=== PATIENT | female | born 1955 | race Caucasian/White ===

== ENCOUNTER 2023-07-12 11:32 | Outpatient (CLI) | payer OTHER, SELFPAY ==
[2023-07-12 19:16] LABS: Alanine Aminotransferase 32 U/L (6-35); Albumin Level 4.5 g/dL (3.5-5.1); Alkaline Phosphatase 74 U/L (38-126); Anion Gap 7 mmol/L (8-16); Aspartate Amino Transferase 43 U/L (14-36); Bilirubin,Total 0.9 mg/dL (0.2-1.3); Blood Urea Nitrogen 15 mg/dL (7-17); Calcium 9.6 mg/dL (8.4-10.2); Carbon Dioxide 29 mmol/L (22-30); Chloride 103 mmol/L (98-107); Cholesterol 259 mg/dL (0-200); Estimated Glomerular Filt Rate > 60; Glucose 97 mg/dL (65-110); HDL Direct 55 mg/dL; Potassium 4.2 mmol/L (3.4-5.0); Sodium 139 mmol/L (137-145); Triglycerides 104 mg/dL (<150)
[2023-07-12 19:28] LABS: LDL Cholesterol Direct 164 mg/dL
[2023-07-12 19:46] LABS: Thyroid Stimulating Hormone 0.399 uIU/mL (0.465-4.680)
[2023-07-12 20:25] LABS: Free T4 Free Thyroxine 1.63 ng/mL (0.78-2.19)
[2023-07-12 20:35] LABS: Hematocrit 44.1 % (37.0-47.0); Hemoglobin 14.2 g/dL (12.0-15.0); Mean Corpuscular HGB Conc 32.2 g/dl (32-36); Mean Corpuscular Volume 93.2 fl (80-100); Mean Platelet Volume 10.4 fl (7.4-10.4); Platelet Count Result 279 k/mm3 (150-375); Red Blood Count 4.73 M/mm3 (4.2-5.4); Red Cell Distribution Width 12.8 % (11.5-14.5); White Blood Count 5.3 K/mm3 (4.5-10.0)
[2023-07-14 10:01] LABS: Amphetamines NEGATIVE ng/mL (<500); Barbiturates NEGATIVE ng/mL (<300); Benzodiazepines NEGATIVE ng/mL (<100); Cocaine Metabolite NEGATIVE ng/mL (<150); Marijuana Metabolite NEGATIVE ng/mL (<20); Methadone Metabolite NEGATIVE ng/mL (<100); Opiates NEGATIVE ng/mL (<100); Oxidant NEGATIVE mcg/mL (<200); pH 6.9 (4.5-9.0)
[2023-07-15 14:18] LABS: Vitamin D 1,25 (OH)2 Total 36 pg/mL (18-72); Vitamin D2 1,25 (OH)2 <8 pg/mL; Vitamin D3 1,25 (OH)2 36 pg/mL
== END 2023-07-12 11:33 | disposition home or self-care (01) ==
PROVIDERS: PCP Family Medicine; Visit Provider Family Medicine
DX: E03.9 Hypothyroidism, unspecified (principal); E66.9 Obesity, unspecified; Z79.899 Other long term (current) drug therapy; Z02.83 Encounter for blood-alcohol and blood-drug test; E55.9 Vitamin D deficiency, unspecified
CPT/HCPCS: 36415; 80053; 80061; 80307; 82652; 84439; 84443; 85027

== ENCOUNTER → 2023-09-16 08:39 | Outpatient (CLI) | payer OTHER, SELFPAY ==
--- NOTE | ~2023-09-16 | US_ITS ---
Abdominal Sonogram: Real-time sonographic imaging of the abdomen was performed. Clinical History: Abdominal pain Findings: The liver appears normal with no evidence of mass lesion or bile duct dilatation. Main por shahbaz vein demonstrates normal direction of flow. The spleen is normal in size without evidence of foca l lesion. The gallbladder is well distended, and appears normal with no evidence of gallstone or wal l thickening. The common bile duct measures 3 mm. The visualized pancreas, aorta, and IVC are unrema rkable. The right kidney measures 9.8 cm in length and the left kidney measures 8.5 cm. There is no hydronephrosis or renal calculus. No hernia seen in the right lower quadrant at the area of clinical concern. Impression: Unremarkable abdominal ultrasound. Reviewed, dictated and finalized at location . RATORY DEVELOPMENT TECHNICIAN Impression: Unremarkable abdominal ultrasound.
== END ==
PROVIDERS: PCP Nurse Practitioner; Visit Provider Nurse Practitioner
DX: R10.9 Unspecified abdominal pain (principal)
CPT/HCPCS: 76700

== ENCOUNTER → 2023-12-21 10:44 | Outpatient (CLI) | payer OTHER, SELFPAY ==
--- NOTE | ~2023-12-21 | XR_ITS ---
Left Hand Technique: PA, oblique, and lateral views were obtained. Clinical History: Fracture Findings: No acute fracture or dislocation is seen. Osseous alignment is anatomic. Joint spaces are p reserved. Soft tissues are unremarkable. Impression: Unremarkable left hand. Reviewed, dictated and finalized at location M. D RETURN REPAIRER Impression: Unremarkable left hand.
== END ==
PROVIDERS: PCP Family Medicine; Visit Provider Family Medicine
DX: M79.645 Pain in left finger(s) (principal)
CPT/HCPCS: 73130

== ENCOUNTER 2024-04-18 10:31 | Outpatient (CLI) | payer OTHER, SELFPAY ==
[2024-04-18 12:58] LABS: Hematocrit 44.6 % (37.0-47.0); Hemoglobin 14.6 g/dL (12.0-15.0); Mean Corpuscular HGB Conc 32.7 g/dl (32-36); Mean Corpuscular Hemoglobin 30.3 pg (26-34); Mean Corpuscular Volume 92.5 fl (80-100); Mean Platelet Volume 10.2 fl (7.4-10.4); Platelet Count Result 306 k/mm3 (150-375); Red Blood Count 4.82 M/mm3 (4.2-5.4); Red Cell Distribution Width 12.3 % (11.5-14.5); White Blood Count 5.7 K/mm3 (4.5-10.0)
[2024-04-18 13:19] LABS: Alanine Aminotransferase 29 U/L (6-35); Albumin Level 4.7 g/dL (3.5-5.1); Alkaline Phosphatase 71 U/L (38-126); Anion Gap 8 mmol/L (4-12); Aspartate Amino Transferase 56 U/L (14-36); Bilirubin,Total 0.9 mg/dL (0.2-1.3); Blood Urea Nitrogen 21 mg/dL (7-17); Calcium 9.6 mg/dL (8.4-10.2); Carbon Dioxide 27 mmol/L (22-30); Chloride 106 mmol/L (98-107); Cholesterol 158 mg/dL (0-200); Estimated Glomerular Filt Rate > 60; Glucose 91 mg/dL (65-110); HDL Direct 60 mg/dL; Potassium 4.3 mmol/L (3.4-5.0); Sodium 141 mmol/L (137-145); Triglycerides 74 mg/dL (<150)
[2024-04-18 13:37] LABS: LDL Cholesterol Direct 83 mg/dL
[2024-04-18 13:45] LABS: Thyroid Stimulating Hormone 0.105 uIU/mL (0.465-4.680)
[2024-04-18 14:09] LABS: Free T4 Free Thyroxine 2.17 ng/mL (0.78-2.19)
[2024-04-22 15:02] LABS: Vitamin D 1,25 (OH)2 Total 49 pg/mL (18-72); Vitamin D2 1,25 (OH)2 <8 pg/mL; Vitamin D3 1,25 (OH)2 49 pg/mL
== END 2024-04-18 10:32 | disposition home or self-care (01) ==
LOC: ANHGOSHLAB 10:33
PROVIDERS: PCP Family Medicine; Visit Provider Family Medicine
DX: E03.9 Hypothyroidism, unspecified (principal); E55.9 Vitamin D deficiency, unspecified; E66.9 Obesity, unspecified; Z79.899 Other long term (current) drug therapy
CPT/HCPCS: 36415; 80053; 80061; 82652; 84439; 84443; 85027

== ENCOUNTER 2024-11-15 11:38 | Outpatient (CLI) | payer OTHER, SELFPAY ==
--- NOTE | ~2024-11-15 | XR_ITS ---
EXAMINATION: XR chest 2V 11/15/2024 11:53 INDICATION: Cough PROCEDURE: 2 view chest COMPARISON: No prior studies for comparison. FINDINGS: The lungs are clear. The cardiomediastinal silhouette is within normal limits. There are no pleural effusions. There is no pneumothorax suspected. There are bilateral breast implants. IMPRESSION: 1: NO ACUTE CARDIOPULMONARY DISEASE. Reviewed, dictated and finalized at location A. INERY WORKER
== END 2024-11-15 11:39 | disposition home or self-care (01) ==
LOC: GOSHIMG 11:39
PROVIDERS: PCP Nurse Practitioner; Visit Provider Nurse Practitioner
DX: R05.9 Cough, unspecified (principal)
CPT/HCPCS: 71046

== ENCOUNTER 2025-01-05 09:59 | Outpatient (CLI) | payer OTHER, SELFPAY ==
--- NOTE | ~2025-01-05 | CT_ITS ---
EXAMINATION:CT chest high resolution wo or DATE: 01/05/2025 10:40 INDICATION: Wheezing. TECHNIQUE: Computed tomography (CT) of the chest was performed without intravenous contrast. Automate d exposure control and iterative reconstruction technique were employed. The dose-length product (DLP ) was 265.48 mGy-cm. COMPARISON: Chest 2 views 11/15/2024 FINDINGS: There is mild atelectasis bilaterally. There are mild groundglass opacities in the upper lo bes. No bronchiectasis or honeycombing. No pleural effusion. The heart size is normal. No pericardial effusion. There are bilateral breast implants. There is mild thoracic spondylosis. IMPRESSION: 1. Mild groundglass opacities in the upper lobes, likely inflammation or infection. Reviewed, dictated and finalized at location A. PHONE SOLICITOR IMPRESSION: 1. Mild groundglass opacities in the upper lobes, likely inflammation or infect ion.
== END 2025-01-05 10:00 | disposition home or self-care (01) ==
LOC: GOSHIMG 10:00
PROVIDERS: PCP Nurse Practitioner; Visit Provider Family Medicine
DX: R06.2 Wheezing (principal); R05.9 Cough, unspecified; R91.8 Other nonspecific abnormal finding of lung field
CPT/HCPCS: 71250

== ENCOUNTER 2025-09-24 08:45 | Outpatient (CLI) | payer OTHER, SELFPAY ==
--- OUTSIDE RECORDS SUMMARY | 2025-09-24 09:18 | XMS_ITS | Clinical Summary ---
Author Organization [facility] Address [address] [place] [address] Care Team Providers Care Photolettering Machine Operator Name Role Phone Herrera Martinez MD Primary Care Provider [phone] Source Comments [facility],non-owned Affiliates and Associated Physician Practices is amultiple site organization consisting of ambulatory clinics and hospital sitesin [place] and [place]. This disclosure is being madepursuant to the Care Everywhere program and may not contain all information available regarding this patient. Last updated 18.[facility] Allergies Active Allergy Reactions Criticality Noted Date Comments Penicillins 07/08/2017 Medications * Be aware that medications may not be up to date on this document. Alwaysverify current medications with the patient. azelastine (ASTELIN) 0.1 % nasal spray [place] 1 [place] into each nostril 2 times daily 3 Inhaler 3 7 Active ketoconazole (Nizoral) 2 % shampoo as needed 2 Active fluocinonide (Lidex) 0.05 % solution as needed 2 Active cetirizine (ZyrTEC) 10 MG tablet Take 1 (one) tablet by mouth once daily 90 tablet 3 2 Active azithromycin (Zithromax) 250 MG tablet Take 2 tablets now, then 1 tablet daily for 4 days. 6 tablet 3 Active atorvastatin (Lipitor) 10 MG tablet TAKE 1 TABLET BY MOUTH EVERY DAY 90 tablet 1 3 Active levothyroxine (Synthroid) 100 MCG tablet TAKE 1 TABLET BY MOUTH EVERY DAY BEFORE BREAKFAST 90 tablet 1 3 Active Active Problems Problem Noted Date Diagnosed Date Seborrheic dermatitis 07/13/2022 Pure hypercholesterolemia 07/13/2022 Psoriasis 06/04/2020 Acne vulgaris 06/04/2020 Seasonal allergic rhinitis due to pollen 018 Acquired hypothyroidism 02/17/2018 Immunizations Immunization Administration Dates Next Due COVESME CHANDRA PRIMARY 18+YR 01/07/2021 Covid Pfizer primary monoval ent 12+ yr 0.3mL Purple cap 03/27/2023,07/25/2022 INFLUENZA VACCINE 07/25/2022 INFLUENZA VACCINE, HIGH-DOSE , QUADR. (FLUZONE HIGH-DOSE QUADRIVALENT; 65Y+), 0.7 ML (HD-IIV4) 07/16/2020 RSV AREXVY 60YR+ 0.5ML 08/23/2023 Zoster Hzv Vacc Recombinant Inj Im 03/30/2023 Family History Medical History Relation Name Comments CAD (Coronary Artery Disease) Father Thyroid Disease Mother Relation Name Status Comments Father Mother Social History Tobacco Use Types Packs/Day Years Used Date Smoking Tobacco: Never Smokeless Tobacco: Never Alcohol Use Standard Drinks/Week Comments No 0 (1 standard drink = 0.6 oz pur e alcohol) PHQ-2 Answer Date Recorded PHQ2 TOTAL SCORE 0 07/13/2022 Comments Unknown Sex and Gender Information Value Date Recorded Sex Assigned at Not on file 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 Gender Identity Not on file Sexual Orientation Not on file Last Filed Vital Signs Vital Sign Reading Time Taken Comments Blood Pressure 116/78 06/25/2023 10:12 AM CDT Pulse 86 07/13/2022 11:10 AM CDT Temperature 36.7 C (98 F) 07/13/2022 11:10 AM CDT Respiratory Rate 14 07/13/2022 11:10 AM CDT Oxygen Saturation 98% 07/13/2022 11:10 AM CDT Inhaled Oxygen Concentration - - Weight 77.1 kg (170 lb) 06/25/2023 10:12 AM CDT Height 160 cm (5' 3) 06/25/2023 10:12 AM CDT Body Mass Index 30.11 06/25/2023 10:12 AM CDT Plan of Treatment Health Maintenance Due Date Last Done Comments BONE DENSITY TESTING 1955 COLOGJOSE (AGES 45-75) - COLON CA SCREENING 1955 CT COLONOGRAPHY - COLON CA SCREENING 1955 FIT - COLON CA SCREENING 1955 FLEX SIG - COLON CA SCREENING 1955 MEDICARE AWV 12 MONTHS 1955 HEPATITIS C SCREENING 05/28/1973 DTAP/TDAP/TD VACCINES (1 - Tdap) 1974 PNEUMOCOCCAL VACCINE 50+ (1 of 1 - PCV) 2005 ZOSTER VACCINE (2 of 2) 05/25/2023 03/30/2023 MAMMOGRAM 10/08/2024 10/08/2022 DEPRESSION SCREENING 11/01/2024 07/13/2022 SCREENING FOR DIABETES 06/22/2025 , 06/16/2021, 06/07/2020, Additional history exists COVID-19 VACCINE ( season) 2025 03/27/2023, 07/25/2022, 01/07/2021 INFLUENZA VACCINE (#1) 2025 07/25/2022, 2019 COLON MONITORING 07/09/2030 07/09/2020 COLONOSCOPY - COLON CA SCREENING 07/09/2030 07/09/2020 Colorectal Cancer Screening 07/09/2030 Respiratory Syncytial Virus (RSV) Vaccine Pt: or over 60 yrs Completed 08/23/2023 HEPATITIS B VACCINE Aged Out No longe r eligible based on patient's age to complete this topic HIB VACCINE Aged Out No longer eligi ble based on patient's age to complete this topic HPV VACCINE Aged Out No longer eligi ble based on patient's age to complete this topic MENINGOCOCCAL (Group B) VACCINE SHARED DECISION-MAKING Aged Out No longer eligible based on patient's age to complete this topic MENINGOCOCCAL GROUPS A/C/Y/W VACCINE Aged Out No longer eligible based on patient's age to complete this topic Procedures Procedure Name Priority Date/Time Associated Diagnosis Comments MAMMO BILAT SCREENING Routine 10/08/2022 Breast cancer screening by mammogram BASIC METABOLIC PANEL (CALCIUM TOTAL) Routine 06/22/2022 9:01 AM CDT Seasonal allergic rhinitis due to pollen from Last 3 Months or Most Recently Relevant to Health Maintenance Results * MAMMO BILAT SCREENING (10/08/2022) Anatomical Region Laterality Modality Breast Bilateral Mammography Herrera Martinez MD MAMMO ORDERABLES Final Resu lt * (ABNORMAL) BASIC METABOLIC PANEL (CALCIUM TOTAL) (06/22/2022 9:01 AM CDT) Glucose 93 65 - 99 mg/dL [facility] INSURANCE BILL BUN 15 8 - 27 mg/dL [facility] INSURANCE BILL Creatinine 0.77 0.57 - 1.00 mg/dL [facility] INSURANCE BILL eGFR by CKD-EPI 84 >59 mL/min/1.7 3 [facility] INSURANCE BILL BUN/Creatinine Ratio 19 12 - 28 [facility] INSURANCE BILL Sodium 143 134 - 144 mmol/L [facility] INSURANCE BILL Potassium 4.6 3.5 - 5.2 mmol/L [facility] INSURANCE BILL Chloride 107(H) 96 - 106 mmol/L [facility] INSURANCE BILL CO2 24 20 - 29 mmol/L [facility] INSURANCE BILL Calcium 9.8 8.7 - 10.3 mg/dL [facility] INSURANCE BILL Comment:FASTING Blood BLOOD SPECIMEN / Unknown 06/22/2022 9:01 AM CDT 06/22/2022 Narrative Resulting Agency Comment Lab Testing performed at: [place] [id number] [facility] [id number] Herrera Martinez MD LAB - CHEMISTRY ORDERABLES Final Result [facility] INSURANCE BILL [address] [place] [address] from Last 3 Months or Most Recently Relevant to Health Maintenance Insurance [facility] MEDICARE Care Teams Photolettering Machine Operator Relationship Specialty Start Date End Date Herrera Martinez MD PCP - General Internal Medicine 07/08/17
--- OUTSIDE RECORDS SUMMARY | 2025-09-24 09:18 | XMS_ITS ---
Author Organization Unknown ENCOUNTERS Encounter Performer Location Date Diagnosis Diagnosis Status Outpatient [facility] [place] [id number] [place] [address] [id number] Outpatient [facility] [address] [place] [address] [id number] [place] Outpatient [facility] [address] [place] [address] [id number] [place] *Note: Encounters from your own facility or health system may be excluded. Allergies, Adverse Reactions, Alerts Allergen Type Severity Identification Date Penicillins drug allergy 3 [id number] Medications Name Date Quantity Days Supplied [facility] Number
--- OUTSIDE RECORDS SUMMARY | 2025-09-24 09:18 | XMS_ITS | Clinical Summary ---
Author Organization [facility] Address [address] [place] [address] Care Team Providers Care Electrical Systems Drafter Name Role Phone Unavailable Primary Care Provider Unavailabl e Encounters Date Type Department Care Team Description 08/22/2025 External Device Data [facility] ABSTRACTION Provider, Abstract 08/21/2025 External Device Data [facility] ABSTRACTION Provider, Abstract 07/24/2025 External Device Data [facility] ABSTRACTION Provider, Abstract 07/17/2025 External Device Data [facility] ABSTRACTION Provider, Abstract 07/10/2025 External Device Data [facility] ABSTRACTION Provider, Abstract from Last 3 Months Social History Tobacco Use Types Packs/Day Years Used Date Smoking Tobacco: Never Assessed Comments No Sex and Gender Information Value Date Recorded Sex Assigned at Not on file 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 Gender Identity Not on file Sexual Orientation Not on file Plan of Treatment Health Maintenance Due Date Last Done Comments DTAP/TDAP/TD VACCINES (1 - Tdap) 1974 COLORECTAL SCREENING 2000 Colorectal Cancer Screening 2000 FIT-DNA Q 3 years 2000 FIT/FOBT Q 1 year 2000 Flex Sig/CT Colonography Q 5 years 2000 PNEUMOCOCCAL VACCINE 50+ YEA RS (1 of 1 - PCV) 2005 OSTEOPOROSIS SCREENING 2020 ZOSTER VACCINE (2 of 2) 05/25/2023 03/30/2023 INFLUENZA VACCINE (#1) 2025 07/22/2023, 2019 COVID-19 Vaccine (5 - 2024-2 6 season) 2025 07/22/2023, 03/27/2023, 07/25/2022, Additional history exists BREAST CANCER SCREENING 03/22/2026 03/22/20 25, 10/13/2023, 10/08/2022, Additional history exists RSV VACCINE (60+ or ) (1 - 1-dose 75+ series) 2030 Procedures Procedure Name Priority Date/Time Associated Diagnosis Comments MAMMO 3D ED SCREEN IMPL BILAT W OR WO CAD Routine 03/22/2025 10:46 AM CDT Visit for screening mammogram from Last 3 Months or Most Recently Relevant to Health Maintenance Results * MAMMO 3D ED SCREEN IMPL BILAT W OR WO CAD (03/22/2025 10:46 AM CDT) Anatomical Region Laterality Modality Breast Bilateral Mammography 03/22/2025 10:4 7 AM CDT Impressions 03/22/2025 2:01 PM CDT IMPRESSION: BI-RADS 2, benign findings consistent with bilateral prepectoral silicone implants which are right-sided with a ruptured with contained rupture. Annual screening mammography is advised. Narrative 03/22/2025 2:01 PM CDT Bilateral screening mammogram. Comparison is made with bilateral screening mammogram from 10/13/2023 and 10/06/2022. CLINICAL HISTORY: Patient is 69-year-old female who is presenting for a screening examination, patient has bilateral silicone implants. The of the implants placement is not known however the right implant is damaged since the beginning of screening here in 2021. There is no personal or family history of breast cancer. TECHNIQUE: Bilateral CC and MLO images of the breasts were obtained with the implants in view and implants out of view/ Feroz view and evaluated with 2-D and 3-D mammogram/tomosynthesis. FINDINGS: Bilaterally, there are bilateral prepectoral silicone implants which the right-sided one is ruptured, however it is a contained rupture. It is a right-sided injury and on MLO view, the spilled implant content is seen within the distal portion of the right breast implant and on CC view, it is seen within the posterior medial and lateral view of the breasts, axial however it does not change images within the same location as this beginning of the screening at 2021. The breast parenchyma is composed of entirely fatty replaced fibroglandular tissue, category A. Bilaterally, there are no suspicious masses, microcalcifications in clusters, architectural distortions or asymmetric densities. us Aria Engel DO MAMMO ORDERABLES Final Res ult from Last 3 Months or Most Recently Relevant to Health Maintenance Insurance [id number] [facility]
--- NOTE | 2025-09-24 09:42 | ECG_ITS ---
Test Date: 2025-09-24 09:57:40 Measurements Intervals [place] Rate: 80 P: 50 NV: 148 QRS: -38 QRSD: 89 T: 17 QT: 385 QTc: 446 Interpretive Statements SINUS RHYTHM MARKED LEFT AXIS DEVIATION [QRS AXIS < -30] POSSIBLE ANTERIOR MYOCARDIAL INFARCTION [30 ms Q WAVE IN V3/V4, OR R < 0.2 mV IN V4], PROBABLY OLD ABNORMAL ECG Electronically Signed On 09-24-2025 13:53:51 NOC TECHNICIAN by Delfino Downs M.D.
[2025-09-24 10:06] LABS: Hematocrit 41.9 % (37.0-47.0); Hemoglobin 13.9 g/dL (12.0-15.0); Immature Granulocyte Percent A 0.2 % (0-0.5); Lymphocytes Absolute Auto 1.98 K/mm3 (0.9-3.2); Mean Corpuscular HGB Conc 33.2 g/dl (32-36); Mean Corpuscular Hemoglobin 29.9 pg (26-34); Mean Corpuscular Volume 90.1 fl (80-100); Nucleated Red Blood Cells Absolute Auto 0.000 K/mm3 (0.0-0.012); Nucleated Red Blood Cells Perc 0.0 % (0.0-0.2); Platelet Count Result 256 k/mm3 (150-375); Red Blood Count 4.65 M/mm3 (4.2-5.4); White Blood Count 6.5 K/mm3 (4.5-10.0)
[2025-09-24 10:16] LABS: INR 1.0; Prothrombin Time 12.8 Seconds (11.1-14.7)
[2025-09-24 10:17] LABS: Partial Thromboplastin Time 27.4 Seconds (22.3-36.8)
[2025-09-24 10:27] LABS: Alanine Aminotransferase 26 U/L (6-35); Albumin Level 4.3 g/dL (3.5-5.1); Alkaline Phosphatase 80 U/L (38-126); Anion Gap 6 mmol/L (4-12); Aspartate Amino Transferase 36 U/L (14-36); Bilirubin,Total 0.6 mg/dL (0.2-1.3); Blood Urea Nitrogen 16 mg/dL (7-17); Calcium 9.3 mg/dL (8.4-10.2); Carbon Dioxide 28 mmol/L (22-30); Chloride 104 mmol/L (98-107); Estimated Glomerular Filt Rate > 60; Glucose 86 mg/dL (65-110); Potassium 4.2 mmol/L (3.4-5.0); Sodium 138 mmol/L (137-145); Total Protein 7.3 g/dL (6.3-8.2)
== END 2025-09-24 08:46 | disposition home or self-care (01) ==
LOC: ANHSURGERY 08:47
PROVIDERS: PCP Family Medicine; Visit Provider Urology
DX: N81.4 Uterovaginal prolapse, unspecified (principal); E78.5 Hyperlipidemia, unspecified; Z01.818 Encounter for other preprocedural examination
CPT/HCPCS: 36415; 80053; 85025; 85610; 85730; 93005

== ENCOUNTER 2025-10-01 01:46 | Day surgery (SDC) | payer OTHER, SELFPAY ==
--- NOTE | 2025-09-24 08:49 | PC.NURSE ---
[facility] has started construction of its new state of the art ER which will open Spring 2026. With this, we anticipate parking may be a challenge for some our surgical patients and families. Parking spaces are limited but are available for all Surgical, obstetrics, and ER patients sharing this lot. If you arrive and find you are having a hard time finding a parking space, please note that we understand the challenges, please drive around the hospital and park near Hospital Entrance 1. When you enter this entrance, you can ask a volunteer to direct or take you back to the surgical waiting area to check in. We appreciate everyone?s understanding of these expected challenges while we build for your future. Report to the Outpatient Waiting Room, entrance under the green pavilion located off [address], at time ___10 am____ on date _10/01/25 . Planned Procedure Time: __1200 noon .? Time changes happen often and if your time is changed the preop area will call you the afternoon before. - You and your visitor will be asked to self-screen and do not enter if you have any COVID symptoms. Please call surgeon if you need to reschedule. - A mask is optional within the hospital at this time. Patients may have clear liquids (water, carbonated beverages, clear teas, apple juice) until 3 hours prior to surgery ( 9AM) with a maximum of 20 ounces. - No food from midnight until time of surgery and no smoking, or chewing tobacco (or any form of nicotine). No chewing gum, candy or mints. - Take only the following medications with a SIP of water on the morning of surgery: LEVOTHYROXINE DO NOT STOP ANY OF YOUR OTHER PRESCRIPTION MEDICATIONS PRIOR TO SURGERY EXCEPT THE FOLLOWING Hold all vitamins and supplements for 3 days per anesthesiologist.LAST DOSE 09/27/25 Medications to discontinue per physician NONE Please no make-up, nail maori, hairspray, perfume, deodorant, or body powder the day of surgery.? No jewelry (including any body piercings) or valuables the day of surgery, leave them at home.? Please take a shower or bath the night before, or the morning of, surgery with an antibacterial soap.? Wear comfortable, loose fitting clothing.? Children are encouraged to wear pajamas. - Jewelry must be removed prior to entering the operating room.? Rings and piercings that are not removed may be cut off. - The hospital will not accept responsibility for valuables.? - Please leave all valuables, including medications, at home the day of surgery. If you are going home after surgery, a licensed tow truck driver must drive you home.? - NO public transportation without another adult if you receive anesthesia. - We recommend that an adult stay with you for 24 hours following discharge. - We also recommend that you do not drive, make important decision, drink alcoholic beverages, or take any drugs that were not prescribed by your health care provider for at least 24 hours after your discharge time. For Pediatric surgeries, we recommend two adults accompany the child home. Follow any additional instructions given to you from your surgeon. VERBAL AND WRITTEN instructions given to _PATIENIT and asked if any additional questions and then verbalized understanding. Patient advised to call surgeon office or pre surgery nurse liaison [phone] if any additional questions.
[2025-09-24 08:52] VITALS: BMI 29.5
[2025-09-24 09:32] VITALS: BP 130/85; PULSE 84; RESP 18; TEMP 36.8; O2SAT 96
--- NOTE | 2025-09-28 19:29 | PM.IMHP ---
H&P: HPI History of Present Illness Date/Time: 09/28/25 19:29 Chief Complaint: Surgery Narrative: POP no aydin Review of Systems Review of Systems: All systems reviewed & are unremarkable except as noted in HPI and below PMFSH Family History Family History Mother Family history of thyroid disease Family history of osteoporosis Hypertension COPD (chronic obstructive pulmonary disease) Father Family history of Parkinson's disease Family history of heart disease in male family member before age 55 Social History Social History Social History: caffeine use- 1 cup of coffee per day Smoking status: Never smoker Second hand tobacco smoke exposure: No Alcohol intake: current Drinks per week: 1 Alcohol use details: maybe 1 a month Substance use: never Substance use type: does not use Lack of Transportation: No Lack of Food: Never True Current Housing: I Have Housing Concerned About Future Housing: No Difficulty Paying Gas/Electric Bills: No Difficulty Paying for Meds: No Currently Unemployed: No Education: High School Diploma/GED Difficulty w/ Childcare or Family Care: No Living arrangements: with family Spiritual care concerns: No Meds Home Medications and Allergies Home Medications ?Medication ?Instructions ?Recorded ?Confirmed ?Type cholecalciferol (vitamin D3) 25 25 mcg PO DAILY 10/19/24 09/24/25 History mcg (1,000 unit) tablet azelastine 137 mcg (0.1 %) nasal 1 spray intranasal Q12H #30 mL 02/22/25 09/24/25 Rx spray levothyroxine 100 mcg tablet 100 mcg PO DAILY #60 tabs 02/22/25 09/24/25 Rx (Levoxyl) fluticasone propionate 50 1 spray intranasal BID #48 grams 07/31/25 09/24/25 Rx mcg/actuation nasal spray,suspension (Flonase Allergy Relief) simvastatin 10 mg tablet 10 mg PO DAILY #90 tabs 07/31/25 09/24/25 Rx cetirizine 5 mg-pseudoephedrine ER See Rx Instructions .Route 09/04/25 09/24/25 Rx 120 mg tablet,extended release,12hr .COMPLEX #180 tabs levothyroxine 112 mcg tablet 112 mcg PO DAILY 09/24/25 09/24/25 History multivit with minerals-iron 18 1 tablet PO DAILY 09/24/25 09/24/25 History mg-folic ac 400 mcg-vit K 25 mcg tablet (Adults Multivitamin) Allergies Allergy/AdvReac Type Severity Reaction Status Date / Time Penicillins Allergy Unknown Swelling Verified 09/24/25 08:53 Exam Narrative: anterior +3 apex 0 Assessment and Plan Assessment and plan (1) Uterine prolapse: Code(s): N81.4 - Uterovaginal prolapse, unspecified Status: Acute Assessment and Plan: Robotic Sacral Colpopexy
[2025-10-01] VITALS (9 sets, daily range): BP systolic 97–139; BP diastolic 52–83; PULSE 63–81; RESP 12–16; TEMP 36.2–36.9; O2SAT 93–99
--- OUTSIDE RECORDS SUMMARY | 2025-10-01 01:50 | XMS_ITS | Clinical Summary ---
Author Organization [facility] Address [address] [place] [address] Care Team Providers Care Aeronautical Research Engineer Name Role Phone Herrera Martinez MD Primary Care Provider [phone] [phone] Source Comments [facility],non-owned Affiliates and Associated Physician Practices is amultiple site organization consisting of ambulatory clinics and hospital sitesin [place], [place], [place] and [place]. This disclosure is being madepursuant to the Care Everywhere program and may not contain all information available regarding this patient. Last updated 18.[facility] Allergies Active Allergy Reactions Criticality Noted Date Comments Penicillins 07/08/2017 Medications * Be aware that medications may not be up to date on this document. Alwaysverify current medications with the patient. 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
--- OUTSIDE RECORDS SUMMARY | 2025-10-01 01:50 | XMS_ITS | Clinical Summary ---
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
--- OUTSIDE RECORDS SUMMARY | 2025-10-01 01:50 | XMS_ITS ---
Author Organization Unknown ENCOUNTERS Encounter Performer Location Date Diagnosis Diagnosis Status Outpatient [facility] [address] [place] [address] [id number] Outpatient [facility] [address] [place] [address] [id number] [place] Outpatient [facility] [address] [place] [address] [id number] [place] Outpatient [facility] [address] [place] [address] [id number] [place] *Note: Encounters from your own facility or health system may be excluded. Allergies, Adverse Reactions, Alerts Allergen Type Severity Identification Date Penicillins drug allergy 3 [id number] Medications Name Date Quantity Days Supplied GPI Number
--- NOTE | 2025-10-01 04:41 | WPDHPUPDATE1 ---
History and Physical Update Update Date/Time: 10/01/25 04:41 History and Physical has been reviewed, including an updated exam of the patient. There are NO changes in the patient's condition. Risks, benefits, and alternatives have been discussed and questions answered. Patient agrees to proceed with procedure.
--- NOTE | 2025-10-01 09:03 | PM.IMHP2 ---
H&P: HPI History of Present Illness Date/Time: 10/01/25 09:03 Chief Complaint: Uterine prolapse Narrative: 70 y/o with symptomatic uterine prolapse. I had fitted her with a pessary in 2023. She says she never wound up using it. She has seen Dr. Kaufman and plans to undergo robotic sacral colpopexy. We plan a concurrent robotic supracervical hysterectomy with bilateral salpingo-oophorectomy. No vaginal bleeding. She has no history of abnormal Pap. Review of Systems Review of Systems: All systems reviewed & are unremarkable except as noted in HPI and below PMFSH Family History Family History Mother Family history of thyroid disease Family history of osteoporosis Hypertension COPD (chronic obstructive pulmonary disease) Father Family history of Parkinson's disease Family history of heart disease in male family member before age 55 Social History Social History Social History: caffeine use- 1 cup of coffee per day Smoking status: Never smoker Second hand tobacco smoke exposure: No Alcohol intake: current Alcohol use details: maybe 1 a month Substance use: never Substance use type: does not use Lack of Transportation: No Lack of Food: Never True Current Housing: I Have Housing Concerned About Future Housing: No Difficulty Paying Gas/Electric Bills: No Difficulty Paying for Meds: No Currently Unemployed: No Education: High School Diploma/GED Difficulty w/ Childcare or Family Care: No Living arrangements: with family Meds Home Medications and Allergies Home Medications ?Medication ?Instructions ?Recorded ?Confirmed ?Type cholecalciferol (vitamin D3) 25 25 mcg PO DAILY 10/19/24 09/24/25 History mcg (1,000 unit) tablet azelastine 137 mcg (0.1 %) nasal 1 spray intranasal Q12H #30 mL 02/22/25 09/24/25 Rx spray levothyroxine 100 mcg tablet 100 mcg PO DAILY #60 tabs 02/22/25 09/24/25 Rx (Levoxyl) fluticasone propionate 50 1 spray intranasal BID #48 grams 07/31/25 09/24/25 Rx mcg/actuation nasal spray,suspension (Flonase Allergy Relief) simvastatin 10 mg tablet 10 mg PO DAILY #90 tabs 07/31/25 09/24/25 Rx cetirizine 5 mg-pseudoephedrine ER See Rx Instructions .Route 09/04/25 09/24/25 Rx 120 mg tablet,extended release,12hr .COMPLEX #180 tabs levothyroxine 112 mcg tablet 112 mcg PO DAILY 09/24/25 09/24/25 History multivit with minerals-iron 18 1 tablet PO DAILY 09/24/25 09/24/25 History mg-folic ac 400 mcg-vit K 25 mcg tablet (Adults Multivitamin) Allergies Allergy/AdvReac Type Severity Reaction Status Date / Time Penicillins Allergy Unknown Swelling Verified 09/24/25 08:53 Exam Const: Orientation/consciousness: patient oriented x3 Other: Well-developed, well-nourished female in no acute distress. Neck: Thyroid: thyroid normal Lymphatic: no lymphadenopathy noted (in neck, axilla or inguinal nodes) Resp: Effort & Inspection: normal respiratory effort Auscultation: clear to auscultation bilaterally Cardio: Rate: regular rate Rhythm: regular rhythm Heart sounds: S1 normal heart sound present and S2 normal heart sound present GI: Other: ABD: Soft, nontender, nondistended. No guarding or rebound tenderness. No hepatosplenomegaly. : General: Yes no CVA tenderness Other: Deferred to the OR Back/Spine/Pelvis: Back: no CVA tenderness Skin: General skin exam: normal color and no rashes or lesions noted Neuro: General: patient oriented x3 Extrem: Other: Extremities: nontender with no edema Psych: Mental Status: mental status grossly normal Affect: normal affect Assessment and Plan Assessment and plan (1) Prolapse of female pelvic organs: Code(s): N81.9 - Female genital prolapse, unspecified Status: Acute Assessment and Plan: A: Pelvic organ prolapse. P: I have offered her a robotic supracervical hysterectomy with bilateral salpingo-oophorectomy. She understands risks of surgery to include risks of anesthesia, risks of pain, infection, bleeding, blood products, thromboembolic phenomena and damage to adjacent structures such as bowel, bladder, ureters, blood vessels and nerves. She understands all these risks and elects to proceed with surgery. She will have concurrent surgery with Dr. Kaufman, as well.
[2025-10-01] MEDS: ACETAMINOPHEN 500 MG TABLET 1000 MG PO (10:15)
[2025-10-01] MEDS: KETOROLAC 15 MG/ML VIAL (*BKC) IV PUSH (10:25)
--- NOTE | 2025-10-01 10:57 | P.PNAN_ITS ---
Anes - Initial Pre Proc Eval Procedure: Operation Date: 10/01/25 12:00 Proposed Procedures p Robotic Sacrocolpopexy, Urethral Sling - Anirudh Kaufman MD s Robotic Assisted Supracervical Hysterectomy with Bilateral Salpingo- oophorectomy - Jonh Tomas MD Date/Time: 10/01/25 10:57 Surgeon: Anirudh Kaufman MD Pre Op Diagnosis: incomp uterovag prolapse, cystocele,stress incont Patient Data Age: 70 Gender: F Height: 1.6 m Weight: 75.5 kg Last Vital Signs Temp 36.8 C 09/24/25 09:32 Pulse 84 09/24/25 09:32 Resp 18 09/24/25 09:32 BP 130/85 09/24/25 09:32 Pulse Ox 96 09/24/25 09:32 O2 Del Method Room Air 09/24/25 09:32 Allergies Allergy/AdvReac Type Severity Reaction Status Date / Time Penicillins Allergy Unknown Swelling Verified 09/24/25 08:53 Home Medications ?Medication ?Instructions ?Recorded ?Confirmed ?Type levothyroxine 100 mcg tablet 100 mcg PO DAILY #60 tabs 02/22/25 09/24/25 Rx (Levoxyl) fluticasone propionate 50 1 spray intranasal BID #48 g aleksandra 07/31/25 10/01/25 Rx mcg/actuation nasal spray,suspension (Flonase Allergy Relief) simvastatin 10 mg tablet 10 mg PO DAILY #90 tabs 07/0410/01/25 Rx cetirizine 5 mg-pseudoephedrine ER See Rx Instructions .Route 09/04/25 10/01/25 Rx 120 mg tablet,extended release,12hr .COMPLEX #180 tabs levothyroxine 112 mcg tablet 112 mcg PO DAILY 09/24/25 10/01/25 History multivit with minerals-iron 18 1 tablet PO DAILY 09/2410/01/25 History mg-folic ac 400 mcg-vit K 25 mcg tablet (Adults Multivitamin) docusate sodium 100 mg capsule 100 mg PO BID #40 caps 10/01/25 Rx (Colace) hydrocodone 5 mg-acetaminophen 325 1 tablet PO Q6H PRN pain #20 tabs 10/01/25 Rx mg tablet Patient hx anesthesia problems: none Family hx anesthesia problems: none Results Review: All pre-operative results and documents have been reviewed as part of the pre- operative evaluation. FOR[facility]LY [facility] Past Medical History Medical History (Updated 10/01/25 @ 10:58 by Vu Fontaine DO) Hyperlipidemia Hypothyroidism, unspecified Family History Family History Mother Family history of thyroid disease Family history of osteoporosis Hypertension COPD (chronic obstructive pulmonary disease) Father Family history of Parkinson's disease Family history of heart disease in male family member before age 55 Social History Social History Social History: caffeine use- 1 cup of coffee per day Smoking status: Never smoker Second hand tobacco smoke exposure: No Alcohol intake: current Alcohol use details: maybe 1 a month Substance use: never Substance use type: does not use Lack of Transportation: No Lack of Food: Never True Current Housing: I Have Housing Concerned About Future Housing: No Difficulty Paying Gas/Electric Bills: No Difficulty Paying for Meds: No Currently Unemployed: No Education: High School Diploma/GED Difficulty w/ Childcare or Family Care: No Living arrangements: with family Nathaniel - Usha Final PreProcedure Day of Procedure 10/01/25 10:57 Patient weight: overweight Heart: regular rate and rhythm Lungs: clear to auscultation Airway: Mallampati scale class II Neurological: alert and oriented Last oral intake: >/= 8 hours ASA classification: II Emergent: no Anesthetic plan: proceed Anesthesia type and monitoring: general ETT and standard monitoring Results Review: All pre-operative results and documents have been reviewed as part of the pre- operative evaluation. Informed Consent: The patient's anesthetic plan and its attendant risks and benefits were disc ussed with the patient/family/POA. Questions were solicited and answers provided to the satisfaction of the patient/family/POA.
--- NOTE | 2025-10-01 12:23 | WPDHPUPDATE1 ---
History and Physical Update Update Date/Time: 10/01/25 12:23 History and Physical has been reviewed, including an updated exam of the patient. There are NO changes in the patient's condition. Risks, benefits, and alternatives have been discussed and questions answered. Patient agrees to proceed with procedure.
[2025-10-01] MEDS: metroNIDAZOLE 500 MG/ISO 100ML 500 MG/100 ML BAG 100 MG IVPB (12:28)
[2025-10-01] MEDS: ceFAZolin 2 GM in SODIUM CHLORIDE 0.9% IV 50 ML 100 ML IVPB (12:28)
[2025-10-01] MEDS: BUPIVACAINE/EPINEPHRINE 0.5% 50 ML VIAL 30 ML INFILTRATE (13:20)
--- NOTE | 2025-10-01 13:41 | W.PM.PROC2 ---
Procedure Note - Detailed Date of Procedure 10/01/25 Pre-op Diagnosis Pelvic organ prolapse Post-op Diagnosis Same Procedure Performed Robotic supracervical hysterectomy with bilateral salpingo-oophorectomy Surgeon Jonh Tomas MD Anesthesia General Findings Uterus, tubes and ovaries are all normal-appearing. Description of Procedure The patient was taken to the operating room where general endotracheal anesthesia was administered. She was prepared and draped in the usual sterile fashion in the dorsal lithotomy position. The bladder was drained with a Munguia catheter. The cervix was visualized and the anterior lip was grasped using a single-tooth tenaculum. The [employer] uterine manipulator was placed. Dr. Kaufman placed the ports and docked the patient cart. I assumed the console. The ureters were visualized bilaterally. The round ligament on the right was divided. The infundibulopelvic ligament was divided. The broad ligament was divided, skeletonizing the uterine artery on the right. The bladder was reflected away. The left side was similarly dissected. The uterus was amputated from the cervix. The specimen was placed in an endobag. Pedicles were inspected and found to be hemostatic. Dr. Kaufman then resumed his portion of the procedure. I was present and scrubbed through my entire portion of the procedure. Implants None Estimated Blood Loss 10 Drains Yes (Munguia) Packing No Pathology Yes (Uterus, bilateral tubes and ovaries) Complications None Condition Stable [facility] Billing Surgery - Charge Forward: Surgery Billing
--- NOTE | 2025-10-01 14:04 | S_PTH ---
PATIENT: Thao Bronson LOC: [facility] U#:[id number] AGE/SX: 70/F ROOM: RE10/01/[address]: Anirudh Kaufman MD : 1955 BED: DIS: 10/01/2025 SPEC #: [id number] RECD: 10/02/25 08:25 STATUS: GEETHA REBrittnee #: [id number] ARCADIO: 10/01/25 14:[address]: Jonh Tomas DEPT: [facility] RECD BY: Lenore Duran ENTERED: 10/02/25 08:25 SP TYPE: Surgical OTHR DR: MD Aria Marques DO Tissues: A - Uterus Procedures: Hematoxylin and Eosin Stain Gross and Microscopic Level 5
[2025-10-01] MEDS: LACTATED RINGERS 1,000 ML 30 ML IV CONT ×2 (15:04→15:05)
--- NOTE | 2025-10-01 15:09 | P.OP_ITS ---
Procedure Note - Detailed Date of Procedure 10/01/25 Pre-op Diagnosis incomp uterovag prolapse Post-op Diagnosis Same Procedure Performed Robotic assisted laparoscopic sacral colpopexy Cystoscopy Surgeon Anirudh Kaufman MD Anesthesia General Indications A woman with uterine prolapse as well as stress incontinence. She desires surgical correction. She is here for the above. She understands risks of bleeding, infection, diskitis, damage to surrounding organs, bowel injury, bowel obstruction, mesh related complications including exposure and extrusion, postoperative voiding dysfunction including incontinence and retention, need for ancillary procedures, dyspareunia, recurrence of prolapse, and other pe rioperative intraoperative postoperative complications. She agrees to proceed. Findings See below Description of Procedure She was correctly identified. Informed consent obtained. She from the operating room. She was given general anesthesia. She was given appropriate perioperative antibiotics. She was placed a low lithotomy position. Pressure points were padded. A time-out performed. I marked out the skin 3 fingerbreadths cephalad to the umbilicus. I anesthetized the skin. I incised the skin. I dissected down to the fascia. I grasped the fascia with Fely clamps. I entered the fascia sharply in a Lopez type technique. A permanent suture was encountered from a previous tummy tuck. I placed sutures for later fascial closure. I placed a midline trocar. I examined the abdomen. There is no sign of any injury. Under direct vision I placed 2 additional trocars in the right upper quadrant and 2 additional trocars the left upper quadrant. She was placed in steep Trendelenburg. The robot was docked. Her search engine marketing specialist completed their portion of the procedure. Please see that operative report for details. I then sat at the console. The Sizer in the vagina created plane on the anterior and posterior vaginal wall. I took great care not to injure the vagina, bladder, or rectum. I introduced the mesh into the abdomen. I sewed the anterior leaflet of mesh on the anterior vaginal wall. I sewed the posterior leaflet of mesh on the posterior vaginal wall. This was done with several sutures of 2 0 [place]. I reflected the colon laterally. I opened the posterior peritoneum over the sacral promontory. I carried this into the cul-de-sac. I freed up the edges for later retroperitonealization. I located the anterior longitudinal ligament the sacrum. I cleaned off all fatty tissues. I then tensioned my mesh appropriately. I did a vaginal exam the bedside. I assured prolapse reduction without undue tension. I then sewed the proximal leaflet of mesh onto the anterior longitudinal ligament of the sacrum with 3 sutures of 2 0 [place]. I then used a 2 0 Monocryl to completely and meticulously retroperitonealized all mesh. I allowed the colon to go back to its normal anatomic location. There is no sign of any impingement. The specimen was then removed. All ports removed. Fascia was tied down. Additional suture was placed fully close the fascia. Skin was closed with Monocryl and surgical glue. I then performed cystoscopy. There was no tumors or surgical artifact. Both ureters were seen to excrete clear yellow urine. There is no surgical artifact in the bladder or urethra. I cut the excess sling material. Close incision with glue. She was awakened and transferred to PACU in stable condition. Implants Sacral colpopexy mesh Estimated Blood Loss 10 Packing No Pathology None sent Complications No immediate complications Condition Stable Disposition PACU
[2025-10-01] MEDS: fentaNYL CITRATE INJ (*CRX) 100 MCG/2 ML VIAL 25 MCG IV PUSH ×2 (15:15→15:34)
== END 2025-10-01 17:32 | disposition home or self-care (01) ==
PROVIDERS: Obstetrics & Gynecology; PCP Family Medicine; Visit Provider Urology
PROC: (CPT 57425; principal; 2025-10-01 12:00)
PROC: (CPT 58542; 2025-10-01 12:00)
DX: N81.2 Incomplete uterovaginal prolapse (principal); N84.0 Polyp of corpus uteri; D25.1 Intramural leiomyoma of uterus
CPT/HCPCS: 58542; 57425; S2900 ×2; 88307; J0690; A9270; C1781; J1100; J1836; J1885; J2003; J2405; J2704; J3010; J7030; J7120